=== PATIENT | female | born 2000 | race Caucasian/White ===

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

== ENCOUNTER → 2022-07-25 | Outpatient (CLI) | payer OTHER ==
[2022-07-25 18:33] LABS: Basophils # (A) 0.04 X 10*3/uL (0.00-0.10); Basophils % (A) 0.5 %; Eosinophils # (A) 0.04 X 10*3/uL (0.04-0.35); Eosinophils % (A) 0.5 %; Erythrocyte Sedimentation Rate 5 mm/Hr (0-20); HCT 38.8 % (37.2-46.3); Immature Grans, Automated 0.3 %; Lymphocytes # (A) 1.63 X 10*3/uL (0.90-5.00); Lymphocytes % (A) 22.4 %; MCH 30.7 pg (27.0-32.0); MCHC 33.5 g/dL (32.0-37.0); MCV 91.7 fL (80.0-97.0); Mean Platelet Volume 11.5 fL (9.5-12.2); Monocytes # (A) 0.71 X 10*3/uL (0.20-1.00); Monocytes % (A) 9.8 %; NRBC Per 100 WBC 0 /100 WBCS (0.0-0.0); Neutrophils # (A) 4.84 X 10*3/uL (1.80-7.70); Neutrophils % (A) 66.5 %; Platelet Count 229 X 10*3/uL (140-440); RBC 4.23 X 10*6/uL (4.10-5.20); RDW 12.6 % (11.5-14.5); WBC 7.28 X 10*3/uL (4.50-10.00)
--- NOTE | 2022-07-25 19:02 | CA ---
Transthoracic Echo Report Name: Carissa Ribera Age: 22 Gender: F : 2000 Exam Date: 07/25/2022 13:49 Exam Location: [place] [facility] Ht (in): 64 Wt (lb): 110 Ordering Physician: Lee Agee MD Attending/Referring Phys: [id number], Anuel [place] Operator Jeannie Hines, [id number] Procedure CPT: Indications: R55 SYNCOPE AND COLLAPSE Cardiac Hx: Technical Quality: Excellent Contrast 1: Total Dose (mL): Contrast 2: Total Dose (mL): MEASUREMENTS (Male / Female) Normal Values 2D ECHO LV Diastolic Diameter PLAX 4.5 cm 4.2 - 5.9 / 3.9 - 5.3 cm LV Systolic Diameter PLAX 2.8 cm IVS Diastolic Thickness 0.8 cm 0.6 - 1.0 / 0.6 - 0.9 cm LVPW Diastolic Thickness 0.7 cm 0.6 - 1.0 / 0.6 - 0.9 cm LV Relative Wall Thickness 0.3 RV Internal Dim ED PLAX 2.7 cm LA Systolic Diameter LX 2.7 cm 3.0 - 4.0 / 2.7 - 3.8 cm LA Volume 28.7 cm??? 18 - 58 / 22 - 52 cm??? M-MODE Aortic Root Diameter MM 2.6 cm MV E Point Septal Separation 0.4 cm AV Cusp Separation MM 2.1 cm DOPPLER AV Peak Velocity 139.6 cm/s AV Peak Gradient 7.8 mmHg MV Area PHT 4.2 cm??? Mitral E Point Velocity 113.8 cm/s Mitral A Point Velocity 45.9 cm/s Mitral E to A Ratio 2.5 MV Deceleration Time 182.1 ms MV E' Velocity 16.5 cm/s Mitral E to MV E' Ratio 6.9 FINDINGS Left Ventricle Left ventricular ejection fraction is estimated at 60-65 %. Left ventricular cavity size normal. Left ventricular wall thickness normal. Right Ventricle Normal right ventricular size and function. Unable to estimate the right ventricular systolic pressure. Right Atrium Normal right atrial size. Left Atrium Normal left atrial size. No evidence for an atrial septal defect. Mitral Valve Structurally normal mitral valve. No mitral stenosis, regurgitation or prolapse. Aortic Valve Trileaflet aortic valve. No aortic valve stenosis or regurgitation. Tricuspid Valve Trace tricuspid regurgitation. Pulmonic Valve Trace pulmonic regurgitation. Pericardium Normal pericardium. No pericardial effusion. Aorta Normal size aortic root and proximal ascending aorta. CONCLUSIONS Left ventricular ejection fraction 60-65% No mitral regurgitation Trace tricuspid regurgitation No pericardial effusion Previewed by: Dr. Juvenal Farah DO (Electronically Signed) Final Date: 25 July 2022 19:01
[2022-07-25 19:20] LABS: T4, Free (Free Thyroxine) 1.23 ng/dL (0.800-1.800)
[2022-07-25 19:29] LABS: % Iron Saturation 41.05 (12.00-45.00); African American GFR (CKD) 144.4 (60.0-200.0); Albumin 4.9 g/dL (3.8-4.9); Albumin/Globulin Ratio 2.02 (1.60-3.17); BUN/Creat Ratio 14.41 Ratio (12.00-20.00); Blood Urea Nitrogen 9.7 mg/dL (9.0-27.0); Carbon Dioxide 24.3 mmol/L (20.0-27.5); Globulin 2.4 g/dL (1.6-3.3); Non-African American GFR(CKD) 124.6 (60.0-200.0); Potassium 4.6 mmol/L (3.5-5.5); Total Bilirubin 0.5 mg/dL (0.30-1.20); Total Protein 7.3 g/dL (6.2-8.2)
== END | disposition home or self-care (01) ==
LOC: RADECHMAIN 13:11
PROVIDERS: ATTEND Family Medicine
DX: R55 Syncope and collapse (principal); R63.4 Abnormal weight loss
CPT/HCPCS: 80053; 82024; 82306; 82533; 82607; 82728; 82746; 83540; 83550; 83735; 84439; 84443; 85025; 85652; 93306